=== PATIENT | female | born 1985 | race African-American/Black ===

== ENCOUNTER 2016-12-27 10:00 | Inpatient (IN) | payer OTHER ==
[~2016-12-27] VITALS: Ht 172.7 cm; Wt 92.1 kg
[~2016-12-27 10:00] MED LIST: Dexamethasone Inj PF*Surgery use* 10 MG/ML VIAL IV ONE; ceFAZolin 1gm/50ml Premix 50 ML IV ONE; ceFAZolin sod 1 GM in NS 55 ML IVP ONE; ceFAZolin sod 1 GM in NS 55 ML IVPB ONE
[2017-01-02] VITALS (12 sets, daily range): BP systolic 91–133; BP diastolic 64–86
[2017-01-02] MEDS ORDERED: Dexamethasone 4mg/ml vial IVP ONE (06:00)
[2017-01-02] MEDS ORDERED: ceFAZolin 1gm in D5W 55ml IVP ONE (06:00)
[2017-01-02] MEDS ORDERED: Thrombin 5000 units TOPIC ONE ×2 (07:05→11:30)
[2017-01-02] MEDS ORDERED: Lidocaine 1% Plain 30 ml INJ ONE (07:06)
[2017-01-02] MEDS ORDERED: Vancomycin 1gm inj IVPB ONE (07:06)
[2017-01-02] MEDS ORDERED: Surgicel 4in x 8in TOPIC ONE (07:06)
[2017-01-02] MEDS ORDERED: Bupivacaine 0.5% Inj 30 ml vial INJ ONE (07:07)
[2017-01-02] MEDS ORDERED: Bacitracin 50000 Units Vial ONE (07:07)
[2017-01-02] MEDS ORDERED: SOMA350 MG PO (08:01)
--- NOTE | 2017-01-02 08:19 | Pre-Procedure Note/Attestation ---
Pre-Procedure Note/Attestation Complete Prior to Procedure Planned Procedure: not applicable Procedure Narrative: ACDF C4-5, C5-6, Anterior internal plate fixation Indications for Procedure Pre-Operative Diagnosis: Trauma, Discogenic Neck Pain Attestation I attest that I discussed the nature of the procedure; its benefits; risks and complications; and alternatives (and the risks and benefits of such alternatives ), prior to the procedure, with the patient (or the patient's legal veterans employment representative). I attest that, if there was a reasonable possibility of needing a blood transfusion, the patient (or the patient's legal veterans employment representative) was given the [facility] standardized written summary, pursuant to the [place] Blood Safety Act ([place] Health and Safety Code # 1645, as amended). I attest that I re-evaluated the patient just prior to the surgery and that there has been no change in the patient's H&P, except as documented below: NAEL CROWLEY Jan 02, 2017 08:19
[2017-01-02] MEDS ORDERED: Sterile Water Irrig 1000ml IRRIG ONE (09:00)
[2017-01-02] MEDS ORDERED: Dexamethasone 4mg/ml vial ONE (09:00)
[2017-01-02] MEDS ORDERED: fentaNYL 250mcg/5ml ONE (09:00)
[2017-01-02] MEDS ORDERED: Labetalol 5mg/ml 20ml vial IV ONE (09:00)
[2017-01-02] MEDS ORDERED: Midazolam 2mg/2ml Inj ONE (09:00)
[2017-01-02] MEDS ORDERED: LR 1000ml ONE (09:00)
[2017-01-02] MEDS ORDERED: Propofol 10mg/ml 100ml btl IV ONE (09:00)
[2017-01-02] MEDS ORDERED: Glycopyrrolate 0.2mg/ml 1ml Vial ONE (09:00)
[2017-01-02] MEDS ORDERED: Neostigmine 1mg/ml 10ml Inj ONE (09:00)
[2017-01-02] MEDS ORDERED: Lidocaine 1% MPF 10mg/ml 5ml ONE (09:00)
[2017-01-02] MEDS ORDERED: Zemuron 50mg/5ml Inj IV ONE (09:00)
[2017-01-02] MEDS ORDERED: NS Irrig 1000ml ONE (09:00)
--- NOTE | 2017-01-02 09:52 | Anethesia Preoperative Eval ---
Anesthesia Pre-op PMH/ROS General Date of Evaluation: Jan 02, 2017 Time of Evaluation: 08:53 Anesthesiologist: Kendrick ASA Score: ASA 2 Mallampati Score Class I : Soft palate, uvula, fauces, pillars visible Class II: Soft palate, uvula, fauces visible Class III: Soft palate, base of uvula visible Class IV: Only hard plate visible Mallampati Classification: Class II Surgeon: Darya Diagnosis: Neck Pain Surgical Procedure: ACDF C4-5, C5-6 Anesthesia History: none Family History: no anesthesia problems Allergies: Uncoded Allergies: BAND AID (Allergy, Mild, REDNESS, 01/02/17) Medications: see eMAR Past Medical History Other: obesity - BMI 31 Anesthesia Pre-op Phys. Exam Physician Exam Last Vital Signs Date Time Temp Pulse Resp B/P Pulse Ox O2 Delivery O2 Flow Rate FiO2 01/02/17 07:55 98.5 67 18 126/70 100 Room Air Constitutional: NAD Neurologic: CN 2-12 intact Cardiovascular: RRR Respiratory: CTA Gastrointestinal: S/NT/ND Airway Exam Mallampati Score: Class II MO: full ROM: limited Teeth: intact, loose - Back Two molars Anesthesia Pre-op A/P Labs Urine Test Test 01/02/17 07:25 Urine HCG, Qualitative Negative Risk Assessment & Plan Assessment: ASA 2 Plan: GA, BIS, Glidescope Status Change Before Surgery: No Pre-Antibiotics Dru Grams Ancef IV Given Within 1 Hr of Incision: Yes Time Given: 10:37 Rodney Marks MD Jan 02, 2017 09:52
--- NOTE | 2017-01-02 09:53 | Immediate Post-Op Evaluation ---
Immediate Post-Op Evalulation Immediate Post-Op Evalulation Procedure: ACDF C4-5, C5-6 Date of Evaluation: Jan 02, 2017 Time of Evaluation: 13:19 IV Fluids: 1000 LR Blood Products: 0 Estimated Blood Loss: 25 Urinary Output: 0 Blood Pressure Systolic: 91 Blood Pressure Diastolic: 66 Pulse Rate: 57 Respiratory Rate: 16 O2 Sat by Pulse Oximetry: 100 Temperature (Fahrenheit): 97.6 Pain Score (1-10): 3 Nausea: No Vomiting: No Complications 0 Patient Status: awake, patent, extubated, none Hydration Status: adequate Dru Grams Ancef IV Given Within 1 Hr of Incision: Yes Time Given: 10:37 Rodney Marks MD Jan 02, 2017 09:53
--- NOTE | 2017-01-02 12:47 | Brief Operative Note ---
Immediate Post Operative Note Operative Note Pre-op Diagnosis: Trauma, Discogenic Neck Pain Procedure: ADR C4-5 C5-6 Microscope SSEP xray Post-op Diagnosis: same as pre-op Findings: consistent w/pre-op dx studies Surgeon: Darya ALBRECHT Chair Lift Operator: Emerald LOZANO Anesthesiologist: Kendrick ALBRECHT Anesthesia: general Specimen: none Complications: none Condition: stable Estimated Blood Loss: minimal Drains: none Implant(s) used?: Yes NAEL CROWLEY Jan 02, 2017 12:47
[2017-01-02] MEDS ORDERED: HYDROmorphone 1mg/ml Carpuject SUBQ PRN (13:00)
[2017-01-02] MEDS ORDERED: Hydromorphone 0.5mg/0.5ml inj ONE (13:17)
[2017-01-02] MEDS ORDERED: LR 1000ml 1,000 ML IVLG SCH (13:17)
[2017-01-02] MEDS ORDERED: Atropine Inj 1mg/10ml Syr IV PRN (13:30)
[2017-01-02] MEDS ORDERED: Meperidine 25mg/0.5ml Inj (FOR RIGORS ONLY) IV PRN (13:30)
[2017-01-02] MEDS ORDERED: fentaNYL 100 mcg/2 mL IV PRN (13:30)
[2017-01-02] MEDS ORDERED: LORazepam Inj 2mg/ml 1ml IV PRN (13:30)
[2017-01-02] MEDS ORDERED: DiphenhydrAMINE 50mg/ml Inj IVP PRN (13:30)
[2017-01-02] MEDS ORDERED: Oxycodone/Acetaminophen 5-325 ORAL PRN (13:30)
[2017-01-02] MEDS ORDERED: Hydromorphone 0.5mg/0.5ml inj IVP PRN (13:30)
[2017-01-02] MEDS ORDERED: Norco 7.5mg/325mg tab ORAL PRN (13:30)
[2017-01-02] MEDS ORDERED: Metoclopramide 10mg/2ml Inj IVP PRN (13:30)
[2017-01-02] MEDS ORDERED: Norco 5mg/325mg tab ORAL PRN (13:30)
[2017-01-02] MEDS ORDERED: Ketorolac 30mg Inj IV PRN (13:30)
[2017-01-02] MEDS ORDERED: Ketorolac 60mg Inj IV PRN (13:30)
[2017-01-02] MEDS ORDERED: Midazolam 2mg/2ml Inj IVP PRN (13:30)
[2017-01-02] MEDS ORDERED: Acetaminophen (Non formulary) 100 ML IV ONE (13:30)
--- NOTE | 2017-01-02 14:07 | Diagnostic Imaging Report ---
Indication: PAIN Technique: Digital intraoperative imaging Comparison: None Findings: Intraoperative images demonstrate surgical tool projected anterior aspect of the C5-6 disc. Subsequent images demonstrate placement of disc prostheses at C4-5 and C5-6. These appear well aligned. Impression: Intraoperative imaging, as described
[2017-01-02] MEDS: D5 1/2NS 1,000 ML IV SCH (15:51)
--- NOTE | 2017-01-02 17:01 | Operative Note - Dictated ---
DATE OF OPERATION: 01/02/2017 SURGEON: Rivera Lackey Ph.D. M.D. RECYCLING SPECIALIST: MARTA Hsu. ANESTHESIOLOGIST: Rodney Marks M.D. ANESTHESIA: General with intubation. ADMITTING/PREOPERATIVE DIAGNOSIS: Posttraumatic discogenic neck pain. POSTOPERATIVE DIAGNOSIS: Posttraumatic discogenic neck pain. OPERATIVE PROCEDURE: 1. Artificial disc replacement C4-C5, C5-C6. 2. High-power microscopic dissection, SSEP monitoring, intraoperative fluoroscopy interpreted by surgeon. ESTIMATED BLOOD LOSS: Minimal. POSTOPERATIVE CONDITION: Good/stable. PROCEDURE: The patient was brought back to the operating room and in supine position general anesthesia with intubation was induced. IV antibiotics and IV Decadron were administered prior to incision time. Utilizing markers without penetration of the skin and cross-table fluoroscopic imaging, level for incision placement determined and marked appropriately. Anterior cervical spine sterilely prepped and draped free in the usual sterile fashion. Transverse left anterior cervical incision sharply through dermis and epidermis. Electrocautery dissection through the subcutaneous tissue to the level of the platysmas muscle was identified, isolated, and transected in line with the incision. Dissection was carried medial to the left sternocleidomastoid and the carotid sheath through the deep cervical and pretracheal fascia to the midline between the right and left longus colli muscles. Midline identified under direct observation. A spinal needle placed into the disk space so as to avoid penetration greater than 3 mm. Cross-table image obtained under sterile conditions demonstrating a correct level for the dissection. Level marked. Needle removed. Subperiosteal dissection of the longus colli muscles not exceeding 3 mm in the mediolateral extent over the involved intervals. Retractors placed. Confirmation levels with needle placement into the disk space at C4-C5. Needle removed. Under high-power magnification, annulotomy followed with microdiscectomy to, but not through the posterior longitudinal ligament. Midas Yevgeniy bur dissection of the anterior inferior lip C4. Posterior longitudinal ligament resected. No dural tears or leaks occurred at any time during the procedure. SSEP monitoring stable. Trials performed with fluoroscopic guidance. The 5 mm high disk utilized. Appropriate insertion technique utilized with drilling, cutting-all instrumentation was stopped so as to avoid possible penetration into the spinal cord. Placement of the disk appropriately. Cross-table imaging demonstrating excellent alignment and position at the correct level. Wound irrigated with antibiotic-containing saline. Attention was turned to the C5-C6 interval. Small anterior osteophyte noted at the anterior superior aspect of the C6 vertebral body. Discectomy to, but not through the posterior longitudinal ligament. The anterior inferior lip on the C5 vertebral body resected under high-power magnification with Midas Yevgeniy bur dissection. was undertaken of all cartilage and then placed both at C4-C5 and C5-C6 interval. Posterior longitudinal ligament resected. No dural tears or leaks occurred at any time during the procedure. No noted cerebrospinal fluid leakage at any time during the procedure. Appropriate technique utilized for insertion of the artificial disc 6 mm in height. Appropriate drilling, cutting, and insertion of the disk. This was after the appropriate trial was utilized to determine depth and height/width. Fit was excellent. The patient is stable. Cross-table imaging demonstrating correct level, alignment, and seating. Wound irrigated with antibiotic-containing saline. A 0.5 grams vancomycin powder applied. Reapproximation of the platysmas muscle, dermis, and epidermis with a subcuticular closure. Surgical strips followed with sterile bandage maintained, placed with tape. The patient was awakened, extubated in the operating room, and transported to postop recovery in good stable condition. Rivera Lackey M.D. DR: JEN JOB#: [id number] CC: JESSY
[2017-01-02] MEDS ORDERED: HYDROmorphone 1mg/ml Carpuject IVP PRN (18:45)
[2017-01-02] MEDS ORDERED: Dronabinol 2.5mg Cap ORAL ONE (18:45)
[2017-01-02] MEDS ORDERED: Tylenol #3 tab (300mg/30mg) ORAL PRN (18:45)
[2017-01-02] MEDS ORDERED: oxyCODONE 5mg IR tab ORAL PRN ×2 (18:45)
[2017-01-02] MEDS: ceFAZolin sod 1 GM in D5W 55 ML IV SCH (18:58)
[2017-01-02] MEDS: Chloraseptic Spray 20mL Bottle ORAL PRN (18:58)
[2017-01-02] MEDS: Dexamethasone 4mg/ml vial IVP SCH (18:58)
--- NOTE | 2017-01-03 00:01 | Consultation ---
DATE OF CONSULTATION: 01/02/2017 REFERRING PHYSICIAN: Rivera Lackey M.D. REASON FOR CONSULTATION: Acute pain. HISTORY OF PRESENT ILLNESS: Dear Dr. Rivera Lackey, Thank you kindly for consulting me to evaluate and render an opinion as to how to proceed in the management of the patient's acute postoperative cervical spine pain after multiple level cervical spine instrumentation surgery today. The patient is a pleasant 31-year-old woman who injured her neck after a slip and fall accident. She also injured her lumbar spine. Today, she underwent a cervical spine multilevel surgery with complaints of significant discomfort postoperatively. On your request, I saw the patient for acute pain consultation. I saw the patient at bedside and performed a detailed history and physical examination. I discussed the case with preoperatively Dr. Rodas along with the nurse RN, [place]. I reviewed multiple medical records from today's date of surgery at [facility] including multiple records from the pharmacy, staff, the nursing department, the intraoperative anesthesiologist, the surgery suite, the pharmacy, and yourself, Dr. Lackey. PAST MEDICAL HISTORY: 1. Acute postoperative cervical spine pain, status post multiple level cervical spine instrumentation surgery by Dr. Rivera Lackey in January 2017. 2. Slip and fall accident. 3. Moderate obesity. PAST SURGICAL HISTORY: Left knee surgery in 2016 and appendectomy as a child. ALLERGIES: No known drug allergies. Allergic to adhesive Band-Aid. SOCIAL HISTORY: The patient lives alone. She admits to recreational marijuana usage. The patient has no children currently. FAMILY HISTORY: Noncontributory. REVIEW OF SYSTEMS: Per Dr. Rodas. PHYSICAL EXAMINATION: VITAL SIGNS: Age 31, height 5 feet 8 inches, weight 202 pounds, and body mass index 31. Vital signs shows pain level is 6/10 on the visual analog pain scale, afebrile, pulse 80, respirations 21, blood pressure 115/71, and oxygen saturation 97% on supplemental oxygen. HEENT: Head, normocephalic and atraumatic. Extraocular muscles intact. Pupils are equal, round, and reactive to light and accommodate. No Castrejon's palsy. No Amie syndrome. NECK: Dressing appears clean and dry. Pain with range of motion. Ice packs in place. CHEST: Clear to auscultation. BREASTS: Deferred to Dr. Rdoas. ABDOMEN: Moderately obese. Positive bowel sounds. GENITOURINARY: Deferred to Dr. Rodas. NEUROLOGIC: Pain with range of motion of the neck. A detailed lumbar spine and neurologic exam deferred to Dr. Lackey. LABORATORY AND DIAGNOSTIC DATA: Preoperative diagnostic testing shows a 12-lead EKG with a heart rate of 70, normal sinus rhythm. Preoperative chest x-ray shows no acute cardiopulmonary disease, 12/27/2016. Cervical discogram, 12/21/2016 shows C4-5 and C5-6 severe concordant pain. Lumbar spine shows no gross spondylolisthesis evident, 12/07/2016. Laboratory studies, 12/27/2016 shows glucose 89, BUN 10, creatinine 0.9, sodium 138, potassium 4.4, chloride 105, bicarbonate 22, calcium 9.3, total protein 6.6, albumin 4.1, total bilirubin 0.3, alkaline phosphatase 54, AST 13, and ALT 12. Hemoglobin A1c 5.5. PTT 29 and INR 0.9. White count 4, platelets 323,000, and hematocrit 37. Urinalysis negative. HIV, hepatitis B and C negative. test negative. IMPRESSION: 1. Acute postoperative cervical spine pain, status post multiple level cervical spine instrumentation surgery by Dr. Rivera Lackey in January 2017. 2. Slip and fall accident. 3. Moderate obesity. TREATMENT AND RECOMMENDATIONS: To help with this patient's pain control, I have devised the following analgesic plan. The patient was complaining of significant muscle spasm. I ordered Soma 350 mg orally every 8 hours p.r.n. as an antispasm agent. I set up a tiered regimen of analgesics to help with pain control. I started her on Tylenol No. 3 with Codeine 1 tablet orally every 4 hours p.r.n. for mild pain. I have ordered oxycodone 5 mg orally every 3 hours p.r.n. for moderate pain, and I have ordered a breakthrough rescue dose of Dilaudid 0.5 mg intravenously every 3 hours p.r.n. for severe pain. I have added a nightly dose of Marinol 2.5 mg now to help with rest and sleep tonight. Dr. Lackey has placed the patient on the round the clock IV Decadron to help postoperatively with swelling. I have streamlined the patient's medication list to reduce the risk of medication administration errors. I have added a dose of Protonix 40 mg nightly for GI ulcer prophylaxis along with a p.r.n. dose of Mylanta 30 mL q.6 h. p.r.n. for any GERD symptoms. I have added Zofran as a rescue antiemetic. I have ordered Benadryl 25 mg orally every 6 hours as needed for itching symptoms. In case of refractory nausea, I have ordered an intramuscular dose of Phenergan 12.5 mg q.8 h. I have ordered incentive spirometry and encouraged good pulmonary toilet. I will defer DVT prophylaxis to the surgeon. The patient has already ambulated to the restroom. Aggressive ambulation will be the best treatment against deep venous thrombosis. Kurt Jones M.D. DR: Alireza JOB#: [id number] CC:
[2017-01-03] MEDS: D5 1/2NS 1,000 ML IV SCH (01:01)
[2017-01-03] MEDS: ceFAZolin sod 1 GM in D5W 55 ML IV SCH (02:01)
[2017-01-03] MEDS: Chloraseptic Spray 20mL Bottle ORAL PRN ×2 (05:30)
[2017-01-03] MEDS: Dexamethasone 4mg/ml vial IVP SCH ×2 (05:50)
[2017-01-03 08:00] VITALS: BP 133/63
--- NOTE | 2017-01-03 08:16 | Progress Note ---
DATE: 01/03/2017 ACUTE PAIN MANAGEMENT PHYSICIAN PROGRESS NOTE MEDICATIONS: Medication administration record reviewed. Medications include Tylenol No.3, Mylanta, Soma, Decadron, Benadryl, Dilaudid, Zofran, oxycodone, Protonix, Chloraseptic, and Phenergan. OBJECTIVE: VITAL SIGNS: Vital signs on this morning afebrile. Pulse 76, respirations 18, blood pressure 133/78, and oxygen saturation 100% on room air. LABORATORY STUDIES: No interval laboratory studies. I saw the patient at the bedside this morning after discussion with the nurse RN, [place]. I spent over 60 minutes in consultation today. I discussed the case with surgeon Dr. Lackey. The patient received her Marinol dose yesterday evening, and slept well after another dose of Soma, which is working well with the muscle relaxant. The patient does have good supply of Soma already at home as well as an outpatient prescription from Dr. Lackey for home usage. The patient has been ambulating very well. She is voiding urine and tolerating advancing diet. She is swallowing, breathing, and phonating within normal limits. After neck surgery, the neck dressing appears clean, and dry, and postoperative neck swelling appears within normal limits. The patient has normal vital signs and appears grossly neurologically intact. Physical therapy will evaluate the patient at this morning and I would expect the patient will be able to discharge home later. I did student loan counselor the patient not to drive while taking postoperative pain medications for any narcotics. I did encourage aggressive incentive spirometer usage for good pulmonary toilet. The patient will contact Dr. Lackey office to schedule outpatient surgical follow up appointment. The patient believes that she does have upcoming lumbar spine surgery in the near future. Overall the patient is doing very well after multilevel neck surgery. She received multiple bolus doses of Decadron per Dr. Lackey, Surgery for postoperative swelling. The patient does have a mild headache currently, but no evidence for CSF drainage. I reviewed discharge trial. Planned per the surgeon, Dr. Lackey. Kurt Jones M.D. DR: ABISAI JOB#: [id number] CC:
[2017-01-03 11:14] VITALS: BP 116/72
--- NOTE | 2017-01-03 11:14 | 48 Hour Post Anesthesia Eval ---
Post Anesthesia Evaluation Procedure: ACDF C4-5, C5-6 Date of Evaluation: Jan 03, 2017 Time of Evaluation: 11:12 Blood Pressure Systolic: 116 0: 72 Pulse Rate: 68 Respiratory Rate: 20 Temperature (Fahrenheit): 97.6 O2 Sat by Pulse Oximetry: 98 Airway: patent Nausea: No Vomiting: No Pain Intensity: 3 Hydration Status: adequate Cardiopulmonary Status: stable Mental Status/LOC: patient returned to baseline Follow-up Care/Observations: n/a Post-Anesthesia Complications: none Follow-up care needed: N/A LISA BAIRES M.D. Jan 03, 2017 11:14
--- NOTE | 2017-01-04 16:20 | Discharge Summary ---
Discharge Summary Hospital Course Date of Admission Jan 02, 2017 at 07:17 Date of Discharge Jan 03, 2017 at 12:00 Admitting Diagnosis HPI Jennifer Burton is a 31 year old female who was admitted on Jan 02, 2017 at 07:17 for Cervical Discogenic Pain Hospital Course [id number] Discharge Discharge Disposition Patient was discharged to Home (01) Discharge Diagnoses: Fernanda Lund NP Jan 04, 2017 16:20
--- NOTE | 2017-01-04 23:45 | Discharge Summary 2 SIG ---
DATE OF ADMISSION: 01/02/2017 DATE OF DISCHARGE: 01/03/2017 AUTOMOTIVE TIRE WORKER: Kurt Jones M.D. BRIEF HOSPITAL COURSE: The patient is a 31-year-old female, who was diagnosed with posttraumatic diskogenic neck pain. She was admitted on 01/02/2017 and underwent artificial disk replacement on C4-C5 and C5-C6 on 01/02/2017. Postoperatively, she was seen by pain management and was given Tylenol No 3 with codeine, oxycodone, and Dilaudid as needed pain. She was also placed on intravenous Decadron to help postoperatively with swelling. The patient was given Protonix for gastrointestinal ulcer prophylaxis as well as Mylanta and Zofran as needed. She was encouraged use of spirometry. The patient had been ambulating well. She was voiding and tolerating diet. Neck dressing appeared clean, dry and was within normal limits. The patient was then discharged home to follow up as outpatient. FINAL DIAGNOSES: Posttraumatic diskogenic neck pain status post artificial disk replacement in C4-C5 and C5-C6. Rivera Lackey M.D. I have been assigned to dictate discharge summary on this account and I was not involved in the patient's management. Fernanda Lund N.P. DR: Vishnu JOB#: [id number] CC: JESSY
== END 2017-01-03 12:00 | disposition home or self-care (01) | DRG 518 ==
LOC: SDSOVERFLO 01-02 07:17 → 3E 01-02 14:28
PROC: 0RR30JZ Replacement of Cervical Vertebral Disc with Synthetic Substitute, Open Approach (ICD-10-PCS; principal; 2017-01-02 08:30)
PROC: 0RB30ZZ Excision of Cervical Vertebral Disc, Open Approach (ICD-10-PCS; principal; 2017-01-02 08:30)
DX: M50.821 Other cervical disc disorders at C4-C5 level (principal); E66.9 Obesity, unspecified; G89.18 Other acute postprocedural pain
CPT/HCPCS: 36415; 72040; 76001; 81025; 86850; 86900; 86901; 87081; 94003; 94150; J2250; J2405; J2710

== ENCOUNTER 2017-10-30 06:38 | Inpatient (IN) | payer OTHER ==
[2017-10-30] VITALS (15 sets, daily range): BP systolic 110–141; BP diastolic 61–97
[~2017-10-30] VITALS: Ht 175.3 cm; Wt 96.6 kg
[~2017-10-30 06:38] MED LIST changes: +Bacitracin 50000 Units Vial ONE; +Dexamethasone 20mg/5ml IVP SCH; -Dexamethasone Inj PF*Surgery use* 10 MG/ML VIAL IV ONE; +Glycopyrrolate 0.2mg/ml 1ml Vial ONE; +HYDROCODON-ACE1 EA13 ORAL; +Heparin 5000 units/ml inj ONE; +LR 1000ml ONE; +Labetalol 5mg/ml 20ml vial IV ONE; +Lidocaine 1% MPF 10mg/ml 5ml ONE; +Lidocaine 1% Plain 30 ml INJ ONE; +Naloxone 0.4mg/ml Inj ONE; +Neostigmine 1mg/ml 10ml Inj ONE; +Propofol 1,000mg/ 100ml btl IV ONE; +Ropivacaine 5mg/ml Vial 30ml INJ ONE; +SOMA350 MG PO; +Sodium Chloride 10ml vial INJ ONE; +Sterile Water For Inj 1000ml IV ONE; +TRIAMCINOLONE A80 GM TP; +Thrombin 5000 units TOPIC ONE; +Zemuron 50mg/5ml Inj IV ONE; -ceFAZolin 1gm/50ml Premix 50 ML IV ONE; +ceFAZolin sod 1 GM in D5W 55 ML IVPB ONE; -ceFAZolin sod 1 GM in NS 55 ML IVP ONE; -ceFAZolin sod 1 GM in NS 55 ML IVPB ONE; +fentaNYL 100 mcg/2 mL IV ONE
[2017-10-30] MEDS ORDERED: Dexamethasone 20mg/5ml ONE (06:44)
[2017-10-30] MEDS ORDERED: Bacitracin 50000 Units Vial IRRIG ONE ×2 (07:00→09:30)
[2017-10-30] MEDS ORDERED: Thrombin 5000 units TOPIC ONE (07:00)
[2017-10-30] MEDS ORDERED: Ropivacaine 5mg/ml Vial 30ml INJ ONE (07:00)
--- NOTE | 2017-10-30 07:24 | Pre-Procedure Note/Attestation ---
Pre-Procedure Note/Attestation Complete Prior to Procedure Planned Procedure: not applicable Procedure Narrative: L5-S1 Anterior discectomy intervertebral device BMP fusion internal fixation Posterior: L5-S1 decompression Pedical Screw Instrumentation Fusion Indications for Procedure Pre-Operative Diagnosis: Posttraumatic: L5-S1 Instability HNP radiculopathy neurologic deficit - progressive Attestation I attest that I discussed the nature of the procedure; its benefits; risks and complications; and alternatives (and the risks and benefits of such alternatives ), prior to the procedure, with the patient (or the patient's legal district sales representative). I attest that, if there was a reasonable possibility of needing a blood transfusion, the patient (or the patient's legal district sales representative) was given the [place] [facility] standardized written summary, pursuant to the [place] Blood Safety Act ([place] Health and Safety Code # 1645, as amended). I attest that I re-evaluated the patient just prior to the surgery and that there has been no change in the patient's H&P, except as documented below: NAEL CROWLEY October 30, 2017 07:24
[2017-10-30] MEDS ORDERED: Lidocaine 1% Plain 30 ml INJ ONE (10:00)
--- NOTE | 2017-10-30 12:38 | Brief Operative Note ---
Immediate Post Operative Note Operative Note Pre-op Diagnosis: Posttraumatic: L5-S1 Instability HNP radiculopathy neurologic deficit - progressive Procedure: L5-S1: Discectomy, Correction deformity, intervertebral body device application BMP Internal fixation Posterior L5-S1 Left hemilaminotomy decompression pedicle screw instrumentation L5, S1 Body Habitus Xray fusion high power magnification dissection local anesthetic Post-op Diagnosis: same as pre-op Findings: consistent w/pre-op dx studies Surgeon: Darya ALBRECHT Radio Disc Jockey: Emerald LOZANO Additional Surgeons: Reyes ALBRECHT Anesthesiologist: Kendrick ALBRECHT Anesthesia: general Specimen: none Complications: none Condition: stable Fluids: anesthesia Estimated Blood Loss: minimal Drains: none Implant(s) used?: Yes NAEL CROWLEY October 30, 2017 12:38
[2017-10-30] MEDS ORDERED: Midazolam 2mg/2ml Inj ONE (12:44)
[2017-10-30] MEDS ORDERED: Naloxone 0.4mg/ml Inj IVP PRN (12:45)
[2017-10-30] MEDS ORDERED: Midazolam 2mg/2ml Inj IVP ONE (13:00)
[2017-10-30] MEDS ORDERED: LR 1000ml 1,000 ML IVLG SCH (13:13)
[2017-10-30] MEDS ORDERED: Ketorolac 30mg Inj IV PRN ×2 (13:15)
[2017-10-30] MEDS ORDERED: fentaNYL 100 mcg/2 mL IV PRN (13:15)
[2017-10-30] MEDS ORDERED: HYDROcodone/Acetamin 7.5/325 tab ORAL PRN (13:15)
[2017-10-30] MEDS ORDERED: oxyCODONE HCL/Acetaminophen 5/325mg ORAL PRN (13:15)
[2017-10-30] MEDS ORDERED: Hydromorphone 0.5mg/0.5ml inj IVP PRN (13:15)
[2017-10-30] MEDS ORDERED: Midazolam 2mg/2ml Inj IVP PRN (13:15)
[2017-10-30] MEDS ORDERED: Metoclopramide 10mg/2ml Inj IVP PRN (13:15)
[2017-10-30] MEDS ORDERED: DiphenhydrAMINE 50mg/ml Inj IVP PRN (13:15)
[2017-10-30] MEDS ORDERED: LORazepam Inj 2mg/ml 1ml IV PRN (13:15)
[2017-10-30] MEDS ORDERED: Labetalol 5mg/ml 20ml vial IV PRN (13:15)
[2017-10-30] MEDS ORDERED: Acetaminophen (Non formulary) 100 ML IV ONE (13:15)
[2017-10-30] MEDS ORDERED: Norco 5mg/325mg tab ORAL PRN (13:15)
[2017-10-30] MEDS ORDERED: Atropine Inj 1mg/10ml Syr IV PRN (13:15)
--- NOTE | 2017-10-30 14:17 | Diagnostic Imaging Report ---
Indication: Back pain Comparison: None Findings: 4 fluoroscopic views of the lumbar spine were obtained. Images showing stages of discectomy and placement of prosthetic disc at L5-S1 with posterior fusion rods and pedicle screws at L5-S1. IMPRESSION: Intraoperative imaging
[2017-10-30] MEDS: D5 1/2NS 1,000 ML IV SCH ×2 (16:21→22:16)
[2017-10-30] MEDS ORDERED: Tylenol #3 tab (300mg/30mg) ORAL PRN (16:30)
[2017-10-30] MEDS ORDERED: oxyCODONE 5mg IR tab ORAL PRN (16:30)
[2017-10-30] MEDS ORDERED: Chloraseptic Spray 20mL Bottle ORAL ONE (17:30)
[2017-10-30] MEDS: ceFAZolin sod 1 GM in D5W 110 ML IV SCH (17:32)
[2017-10-30] MEDS ORDERED: ceFAZolin sod 1 GM in D5W 55 ML IV SCH (18:00)
[2017-10-30] MEDS: Chloraseptic Spray 20mL Bottle ORAL PRN (18:47)
[2017-10-30] MEDS: Hydromorphone 0.5mg/0.5ml inj SUBQ PRN (20:30)
[2017-10-30] MEDS: Dronabinol 2.5mg Cap ORAL SCH (22:16)
--- NOTE | 2017-10-30 23:00 | Operative Note - Dictated ---
DATE OF OPERATION: 10/30/2017 PRIMARY SURGEON: Rivera Lackey, Ph.D., M.D. CO-SURGEON: Anterior fusion, vascular surgery exposure, Dr. Chambers with Dr. Lackey, as assist posterior. VP STRATEGIC PARTNERSHIPS: MARTA Hsu. ANESTHESIA: General with intubation, Dr. Marks. ESTIMATED BLOOD LOSS: 50 mL. COMPLICATIONS: None. POSTOPERATIVE CONDITION: Good/stable. PREOPERATIVE DIAGNOSIS: Post trauma lumbar spine instability, back pain with lower extremity radiculopathy, left footdrop/neurologic deficit. POSTOPERATIVE DIAGNOSIS: Post trauma lumbar spine instability, back pain with lower extremity radiculopathy, left footdrop/neurologic deficit. OPERATIVE PROCEDURE: Anterior, L5-S1 diskectomy, correction deformity, insertion of biomechanical lordotic device, internal fixation placement, bone morphogenic protein for fusion. Closure local anesthetic applied by surgeon, high-powered magnification dissection. Please see separate report for exposure and closure, Dr. Chambers. Posterior, the patient's body habitus greater than 95th percentile for height. Hemilaminotomy left L5-S1 with nerve root decompression dorsal foraminotomy, pedicle screw instrumentation, bilateral L5, bilateral S1, local anesthetic applied by surgeon. Intraoperative x-rays interpreted anterior/posterior by surgeon. PROCEDURE IN DETAIL: The patient was brought to the operating room and in the supine position general anesthesia with intubation was induced. IV antibiotics, IV Decadron were administered 30 minutes prior to incision time. The patient was appropriately positioned in the supine position. Anterior abdomen was sterilely prepped and draped free in usual sterile fashion. Please see separate report of Dr. Chambers, exposure/closure. L5-S1 was identified in the AP and lateral planes with fluoroscopy under sterile conditions with a spinal needle in place. Midline with a spinal needle bent at 90 degree angles to avoid penetration greater than 3 mm into the disc space. Level correct and marked. Needle removed. Annulotomy performed followed with diskectomy to the posterior longitudinal ligament. Endplate irregularities corrected to horizontal endplates with the Midas Yevgeniy bur dissection under high-power magnification. Subchondral bone not breached. Trial prosthesis utilized with fluoroscopic guidance with determination of the correct size with regards to height, angle of lordosis, depth and width. Prosthesis after being mounted on the insertion device, was packed with bone morphogenic protein, intubated sponge for fusion. Insertion device utilized with placement of prosthesis correct positioning. Internal fixation wings applied to cephalad to caudad. Fixation excellent. Insertion device removed. Prosthesis incorporated in fibrin glue. Irrigation. Please see closure, Dr. Chambers. After bandage was applied under sterile conditions to the abdomen, the patient was carefully turned to a new operating table in the prone position. All new instruments were utilized. Lumbodorsal spine was sterilely prepped and under sterile conditions, spinal needle was placed in the subcutaneous tissue only and fluoroscopic cross-table imaging obtained demonstrating the correct level for incision placement. Levels marked. Needle removed. Back prepped and draped free in usual sterile fashion. A longitudinal midline incision over the appropriate intervals were sharply placed in the dermis and epidermis. Extensive dissection was carried electrocautery through the subcutaneous tissue to the level of lumbodorsal fascia. Lumbodorsal fascia was incised right and left of midline. A subperiosteal dissection over the involved intervals. Intervals confirmed with fluoroscopic imaging under sterile conditions, cross-table with markers in place. Under high-power magnification, a left hemilaminotomy was performed. Inferior L5 superior S1 with decompression of the exiting nerve root. Medial facetectomy performed. Dorsal foraminotomy performed. No dural tears or leaks noted anytime during the procedure. Wound was irrigated with antibiotic-containing saline. Bleeding bone was cauterized with application of sterile wax. With direct observation combined with fluoroscopic guidance, pedicle screw instrumentation was undertaken bilateral S1, bilateral L5 pedicles with 6.5 mm diameter screws. Fit excellent. Positioning excellent by fluoroscopic and direct observation. Interconnecting rods of the appropriate dimensions torqued into position with the appropriate torque by technology adoption manager's definition. Fixation excellent. Wound was irrigated with antibiotic-containing saline. FloSeal applied overlying the hemilaminotomy site. Sequential reapproximation with Vicryl suture material of the lumbodorsal fascia, subcutaneous tissue in multiple layers, dermis and epidermis with a running subcuticular suture. Local anesthetic 1% Marcaine was applied bilateral lateral aspects of the incision as local anesthetic. Transverse surgical strips applied followed with sterile bandage maintained in place with tape. The patient was carefully turned from the prone to the supine position onto the transport bed where she was awakened, extubated in the operating room, and transported to postoperative recovery in good stable condition. Rivera Lackey M.D. DR: CASH JOB#: [id number] CC:
[2017-10-31] VITALS: BP 95/66
[2017-10-31] MEDS: Chloraseptic Spray 20mL Bottle ORAL PRN ×2 (00:13→21:19)
--- NOTE | 2017-10-31 00:30 | Consultation ---
DATE OF CONSULTATION: 10/30/2017 CONSULTING PHYSICIAN: Kurt Jones M.D. REFERRING PHYSICIAN: Rivera Lackey M.D. REASON FOR CONSULT: Acute pain consult. HISTORY OF PRESENT ILLNESS: Dear Dr. Rivera Lackey, Thank you kindly for consulting me to evaluate and render an opinion as to how to proceed in the management of the patient's acute postoperative lumbar spine pain after her lumbar spine fusion surgery with instrumentation today. The patient is a pleasant 32-year-old woman who injured her lumbar spine after a slip and fall accident on December 10, 2015. After today's lumbar spine fusion surgery, she complains significant pain. You consulted me for acute pain consultation. I saw the patient at bedside. I discussed the case with the nurse, Wayne along with yourself, Dr. Lackey. I spoke with the hospital pharmacist. I reviewed multiple records from the patient's previous hospitalization at [facility] in January 2017 when she had neck surgery. I also reviewed multiple records from the surgery suite, the nursing and pharmacy department. PAST MEDICAL HISTORY: 1. Acute postoperative lumbar spine pain, status post lumbar spine fusion surgery with instrumentation by Dr. Rivera Lackey in October 2017. 2. Slip and fall accident. 3. Moderate obesity. PAST SURGICAL HISTORY: In January 2017, cervical spine surgery by Dr. Rivera Lackey. Left knee surgery in 2016. Appendectomy as a child. ALLERGIES: Latex, Band-Aids. SOCIAL HISTORY: The patient lives alone and does not have any children. She does use marijuana for pain control. FAMILY HISTORY: Noncontributory. MEDICATIONS: At home, Soma, [place], and topical steroid cream. REVIEW OF SYSTEMS: Per Dr. Rodas. PHYSICAL EXAMINATION: VITAL SIGNS: Age 32, height 5 feet 8 inches, weight 97 kilograms, body mass index 32. Pain level 7/10 on the visual analog pain scale. Afebrile, pulse 75, respirations 18, blood pressure 116/72, and oxygen saturation 100% on supplemental oxygen. HEENT: Nasal cannula oxygen in place. No Castrejon palsy. No Amie syndrome. NECK: A detailed cervical spine exam per Dr. Lackey. CHEST: Clear to auscultation. Bibasilar crackles likely secondary to obesity and postoperative atelectasis. No accessory muscle use noted. The patient appears non-toxic. HEART: Regular rate and rhythm. ABDOMEN: Tender by incision area with mild distention. No rebound or guarding appreciated. BREASTS: Deferred. GENITOURINARY: Deferred. Sotrm catheter in place. EXTREMITIES: Moving all extremities x4. 5/5 dorsiflexion, 5/5 plantar flexion in bilateral lower extremities. NEUROLOGIC: Detailed neurologic exam per Dr. Lackey. LABORATORY STUDIES: October 24, 2017 shows negative test. Glucose 85, BUN 9, creatinine 0.9, sodium 139, potassium 4.4, chloride 104, bicarb 28, and calcium 9.4. Total protein 7.5, albumin 4.4, total bilirubin 0.4. Alkaline phosphatase 65, AST 14, ALT 12, PTT 29. White count 6, hematocrit 41, and platelets 321. Urinalysis negative. INR 1.0. Preoperative 12-lead EKG shows heart rate 59, no evidence for acute cardiac ischemia. MRI lumbar spine dated November 08, 2016 shows L4-5 with a 3 mm posterior disk bulge abutting the ventral thecal sac, L5-S1 with a 2 mm posterior disk bulge. X-ray of lumbar spine dated December 07, 2016 shows findings straightening of the lumbar curve in both flexion and extension, moderate L5-S1 disc space narrowing. IMPRESSION: 1. Acute postoperative lumbar spine pain, status post lumbar spine fusion surgery with instrumentation by Dr. Rivera Lackey in October 2017. 2. Slip and fall accident. 3. Moderate obesity. TREATMENT RECOMMENDATIONS: I advised the following, analgesic pain to help with this patient's pain control. She does use marijuana for pain control at home, so I will place her on Marinol 2.5 mg every 8 hours p.r.n. scheduled for baseline analgesia. I then added p.r.n. doses of Tylenol No. 3 with Codeine one tablet orally every 4 hours p.r.n. for mild pain. I have ordered oxycodone 5 mg instant release every three hours p.r.n. for moderate pain. I spoke with the pharmacist to add a subcutaneous dose of 1 mg Dilaudid every three hours as needed for severe breakthrough pain. The patient will remain NPO except for medications and ice chips until she demonstrates moravian of bowel function after ALIF procedure. I will place her on Protonix for GI ulcer prophylaxis and I have also ordered p.r.n. dose of Mylanta 30 mL q.6 hours in case of any GERD symptoms exacerbation. In case of any nausea symptoms, I have ordered Zofran 4 mg intravenously every 4 hours p.r.n. as a first-line agent, with a second-line agent of Phenergan 12.5 mg intramuscularly every 8 hours p.r.n. In case of any headache complaints, I have ordered Fioricet tablets 1 every 8 hours p.r.n. The patient does respond well to Soma which I have made available at a 350 milligram dose orally every 8 hours p.r.n. for spasm. The patient already has a new prescription from Dr. Lackey for Soma and at the time of discharge, I will provide a prescription for another oral analgesic, depended on the patient's tolerability during her hospital stay. I have asked the nursing team to place a Chloraseptic [place] bottle at the bedside to help with the patient's sore throat complaints postoperatively. I have made available Benadryl 25 mg orally every 6 hours p.r.n. for itching symptoms. Sequential compression pneumatic for DVT prophylaxis. I did encourage incentive spirometer usage to help reduce the risk of postoperative pneumonia and atelectasis. Kurt Jones M.D. DR: BENY JOB#: [id number] CC:
[2017-10-31] MEDS: ceFAZolin sod 1 GM in D5W 110 ML IV SCH ×2 (02:28→10:04)
[2017-10-31] MEDS: Hydromorphone 0.5mg/0.5ml inj SUBQ PRN ×2 (02:38→22:50)
[2017-10-31 04:00] VITALS: BP 114/64
[2017-10-31] MEDS: Dronabinol 2.5mg Cap ORAL SCH ×3 (05:29→21:18)
[2017-10-31] MEDS: oxyCODONE 5mg IR tab ORAL PRN ×3 (05:45→17:30)
[2017-10-31] MEDS: D5 1/2NS 1,000 ML IV SCH ×2 (05:46→17:24)
[2017-10-31 08:00] VITALS: BP 100/62
[2017-10-31] MEDS ORDERED: Hydromorphone 0.5mg/0.5ml inj SUBQ ONE (10:45)
--- NOTE | 2017-10-31 11:05 | 48 Hour Post Anesthesia Eval ---
Post Anesthesia Evaluation Procedure: Antyerior and posterior lumbar interbody fusion Date of Evaluation: October 31, 2017 Time of Evaluation: 10:22 Blood Pressure Systolic: 136 0: 75 Pulse Rate: 68 Respiratory Rate: 18 Temperature (Fahrenheit): 98.1 O2 Sat by Pulse Oximetry: 98 Airway: patent Nausea: No Vomiting: No Pain Intensity: 3 Hydration Status: adequate Cardiopulmonary Status: stable Mental Status/LOC: patient returned to baseline Follow-up Care/Observations: n/a Post-Anesthesia Complications: none Follow-up care needed: N/A Haresh Foy MD October 31, 2017 11:05
[2017-10-31 12:00] VITALS: BP 123/78
[2017-10-31 16:00] VITALS: BP 111/68
--- NOTE | 2017-10-31 19:02 | Progress Note ---
DATE: 10/31/2017 ACUTE PAIN MANAGEMENT PHYSICIAN PROGRESS NOTE MEDICATIONS: Medication administration record reviewed. Medications include IV fluids, Protonix, Marinol, Ancef, and Narcan. P.r.n. medications include Fioricet, Tylenol No. 3, Soma, Zofran, Mylanta, Benadryl, Phenergan, Chloraseptic, Dilaudid, and oxycodone. LABORATORY STUDIES: No interval laboratory studies. OBJECTIVE: Afebrile, respirations 20, blood pressure 114/64, and oxygen saturation 99% on supplemental oxygen. I spent over 60 minutes in consultation today. I discussed the case with the physical therapist along with the surgeon, Dr. Lackey. The patient still is not passing flatus after her ALIF procedure. We will continue her NPO except for medications and ice chips until she demonstrates improved bowel function. The patient denies any nausea symptoms. The patient is having some itching symptoms, which should resolve. I will continue her on Protonix to avoid any GERD symptoms. She does have Mylanta available in case of any GERD symptom exacerbation. The patient has been receiving her Marinol q.8 hours with good analgesic efficacy. I will continue the breakthrough doses of subcutaneous Dilaudid and oral oxycodone along with oral Soma to enable her to ambulate out of bed with physical therapy. Physical therapy training will begin later this morning. An incentive spirometer remains at the bedside to encourage good pulmonary toilet. We will continue the supportive care for now and await signs of improved bowel function as she advances with physical therapy for the next 48 hours. Kurt Jones M.D. DR: JULIUS JOB#: [id number] CC:
[2017-10-31 20:00] VITALS: BP 121/68
[2017-11-01] VITALS: BP 118/66
[2017-11-01] MEDS: D5 1/2NS 1,000 ML IV SCH ×4 (00:25→23:15)
[2017-11-01] MEDS: oxyCODONE 5mg IR tab ORAL PRN ×2 (00:32→19:08)
[2017-11-01 04:00] VITALS: BP 116/64
[2017-11-01] MEDS: Dronabinol 2.5mg Cap ORAL SCH ×3 (06:18→22:24)
[2017-11-01 08:00] VITALS: BP 111/69
[2017-11-01] MEDS: Hydromorphone 0.5mg/0.5ml inj SUBQ PRN (10:09)
[2017-11-01 12:00] VITALS: BP 127/78
[2017-11-01 16:00] VITALS: BP 119/69
[2017-11-01 20:00] VITALS: BP 116/70
[2017-11-02] VITALS: BP 116/70
[2017-11-02] MEDS: D5 1/2NS 1,000 ML IV SCH ×2 (01:44→10:20)
[2017-11-02 04:00] VITALS: BP 104/61
[2017-11-02] MEDS: oxyCODONE 5mg IR tab ORAL PRN (04:53)
[2017-11-02] MEDS: Dronabinol 2.5mg Cap ORAL SCH ×3 (05:52→22:17)
[2017-11-02 08:00] VITALS: BP 108/63
[2017-11-02 12:00] VITALS: BP 114/64
[2017-11-02 16:00] VITALS: BP 118/70
[2017-11-02 20:00] VITALS: BP 109/62
--- NOTE | 2017-11-02 20:16 | Progress Note ---
DATE: 11/02/2017 ACUTE PAIN MANAGEMENT PHYSICIAN PROGRESS NOTE MEDICATIONS: Medication administration record reviewed. Medications include Phenergan, Chloraseptic, Protonix, Roxicodone, Dilaudid, Marinol, Benadryl, Soma, Mylanta, and Fioricet. LABORATORY STUDIES: No interval laboratory studies. OBJECTIVE: VITAL SIGNS: Pain level 5/10 on the visual analog pain scale, oxygen saturation 100% on room air, blood pressure 108/63, respirations 17, pulse 83, afebrile. I spent over 60 minutes in consultation today. I saw the patient at bedside with the nurse RN, Wayne. I discussed the case with the surgeon, Dr. Lackey and the physical therapist, Arturo. The patient is progressing very well clinically. She just started passing positive flatus. I have updated Dr. Lackey and he will advance her diet when he feels appropriate. The patient is ambulating very frequently. Earlier she was walking in the hallways greater than 150 feet with minimal assistance. There was question if he might need a front wheel walker when she is discharged from the hospital. This may or may not be necessary. The patient is progressing quite well and has a very good optimism. She has nearly stopped using the parenteral narcotics. She has been responding well to the oxycodone, which in combination with the scheduled Marinol and intermittent Soma, has been providing excellent analgesia and able to advance her ambulation. She has been compliant using her incentive spirometer. I did encourage deep breathing. We will continue to await further improvement in her bowel function and she will remain in the hospital on supportive care until she has a bowel movement after ALIF surgical procedure. The patient already has prescription for Soma and I will leave a prescription for Percocet for outpatient usage. The patient also will continue with marijuana at home for analgesia. Kurt Jones M.D. DR: Jennifer JOB#: [id number] CC:
[2017-11-03] VITALS (7 sets, daily range): BP systolic 102–134; BP diastolic 63–85
[2017-11-03] MEDS: oxyCODONE 5mg IR tab ORAL PRN ×2 (01:11→04:55)
[2017-11-03] MEDS: Dronabinol 2.5mg Cap ORAL SCH ×3 (06:03→20:52)
[2017-11-03] MEDS ORDERED: D5 1/2NS 1000ml IV ONE (11:13)
--- NOTE | 2017-11-03 18:45 | Progress Note ---
DATE: 11/03/2017 ACUTE PAIN MANAGEMENT PHYSICIAN PROGRESS NOTE MEDICATIONS: Medication administration record reviewed. Medications include Protonix and Marinol. P.r.n. medications include Narcan, Fioricet, Soma, Zofran, Mylanta, Benadryl, Phenergan, Chloraseptic spray, oxycodone, and Dilaudid. LABORATORY STUDIES: No interval laboratory studies. OBJECTIVE: VITAL SIGNS: Within normal limits. Pain level 6/10 on the visual analog pain scale. Afebrile, pulse 82, respirations 18, blood pressure 112/63, and oxygen saturation 99% on room air. I spent over 60 minutes in consultation today. I saw the patient at the bedside with the nurse RN Destin. The patient continues to ambulate frequently. I spoke with the surgeon, Dr. Lackey, regarding the patient's care. The patient still has tightness in her lumbar girdle area. This is consistent with postoperative surgical pain after her considerable lumbar spine fusion surgery. The patient continues to pass considerable flatus, and Dr. Lackey did advance the patient's diet. She tolerated clear liquid and full liquid diet. She will continue advancing her diet slowly. She has no nausea symptoms. The patient shows no signs of oversedation on the scheduled Marinol. In fact, she has been having some insomnia. I did encourage to continue using the p.r.n. doses of Soma and oxycodone for breakthrough pain and for insomnia symptoms. The patient has been very compliant using her incentive spirometer. Her good efforts have kept fevers away. The patient has been able to move in and out of bed independently, although with some difficulty due to surgery. She does not appear to be a fall risk. The patient is in good spirits. I left the prescription for Percocet for outpatient usage. We will continue to monitor the patient's gastrointestinal function after her ALIF surgery, as she needs to have a bowel movement prior to discharging from the hospital. We will continue to advance her diet and hold off on any scheduled laxatives until ordered by Dr. Lackey. Kurt Jones M.D. DR: Alireza JOB#: [id number] CC:
[2017-11-04] MEDS: Dronabinol 2.5mg Cap ORAL SCH (06:13)
[2017-11-04] MEDS ORDERED: PERCOCET 10-321 EACH ORAL (07:56)
--- NOTE | 2017-11-04 19:30 | Progress Note ---
ACUTE PAIN MANAGEMENT PHYSICIAN PROGRESS NOTE MEDICATIONS: Medication administration record reviewed. Medications include Protonix, oxycodone, Mylanta, Benadryl, and Zofran. LABORATORY STUDIES: No interval laboratory studies. Vital signs within normal limits. Afebrile. Pain level is 4/10 on the visual analog pain scale. I discussed the case with the charge nurse, RNTia and the orthopedic floor nurse. The patient did have a bowel movement, which showed nondenominational of gastrointestinal function after ALIF surgical procedure. She continues to ambulate very well. She denies any shortness of breath or chest pain. Her pain is being well managed off of parenteral narcotics, she has been using the scheduled Marinol along with p.r.n. Soma and oxycodone with good relief. I did leave a prescription for Percocet for outpatient usage. The patient will be staying at a friend's house that help her recuperate. I agree with Dr. Lackey for a discharge trial home today with followup in the surgical clinic in 1 to 2 weeks. I did remind the patient to take home the incentive spirometer and continued usage for good pulmonary toilet. Kurt Jones M.D. DR: BENJAMIN JOB#: [id number] CC:
--- NOTE | 2017-11-05 12:44 | Discharge Summary ---
Discharge Summary Hospital Course Date of Admission October 30, 2017 at 06:38 Date of Discharge Nov 04, 2017 at 10:15 Admitting Diagnosis Posttraumatic: L5-S1 Instability Herniated nucleus pulposa Radiculopathy progressive neurologic deficit - Reason for Hospitalization: elective surgery HPI Jennifer Burton is a 32 year old female who was admitted on October 30, 2017 at 06:38 for Lumbar Discogenic Pain due to Posttraumatic: L5-S1 Instability, Herniated nucleus pulposa, Radiculopathy and progressive neurologic deficit - Consultations dr Jones-pain specialist Procedures s/p 10/30/[address] Lackey and dr Chambers ( for vascular exposure) Anterior: L5-S1 diskectomy, correction deformity, insertion of biomechanical lordotic device, internal fixation placement, bone morphogenic protein for fusion. Closure local anesthetic applied by surgeon, high-powered magnification dissection. Please see separate report for exposure and closure, Dr. Chambers. Posterior: the patient's body habitus greater than 95th percentile for height. Hemilaminotomy left L5-S1 with nerve root decompression dorsal foraminotomy, pedicle screw instrumentation, bilateral L5, bilateral S1, local anesthetic applied by surgeon. Intraoperative x-rays interpreted anterior/posterior by surgeon. Hospital Course s/p surgery course of recovery uneventful frequent neurochecks, stable pain management, pain specialist followed dressing C/D/I initially with IVF until tolerated duet Chloraseptic spray prn liquid diet initially and advanced as tolerated, a/emetic prn IS at the bedside , encouraged to use while in the bed encourage ambulation after pain controlled worked with PT/OT therapists voided freely tolerated diet pain controlled s stable for dc home with outpatient fup with surgeon as advised dc instructions provided FINAL DIAGNOSES Posttraumatic: L5-S1 Instability Herniated nucleus pulposa Radiculopathy progressive neurologic deficit - s/p anterior and posterior lumbar interbody fusion Discharge Medications Continued Medications: Carisoprodol* (Soma*) 350 Mg Tablet 350 MG PO NEEDED, TAB (This prescription has been renewed) Oxycodone Hcl/Acetaminophen 10-325 Mg Tablet (Percocet 10-325 Mg Tablet*) 1 Each Tablet 0.5 TAB ORAL Q4H PRN for For Pain, TAB (This prescription has been renewed) Triamcinolone Acetonide (Triamcinolone Acetonide) 80 Gm Cream..g. 80 GM TP BID, GM (This prescription has been renewed) Discontinued Medications: Hydrocodone Bit/Acetaminophen 10-325* (Hydrocodon-Acetaminophn 10-325*) 1 Each Tablet 1 TAB ORAL Q8H, #30 TAB 0 Refills Discharge Condition Upon Discharge: stable Discharge Disposition Patient was discharged to Home (01) Discharge Instructions Discharge Instructions Special Instructions I have been assigned to complete a D/C Summary on this account. I was not involved in the patient management Mira Silva NP Nov 05, 2017 12:44
== END 2017-11-04 10:15 | disposition home or self-care (01) | DRG 455 ==
LOC: SDSOVERFLO 06:38 → 3E 14:34
PROC: 0SG30A0 Fusion of Lumbosacral Joint with Interbody Fusion Device, Anterior Approach, Anterior Column, Open Approach (ICD-10-PCS; principal; 2017-10-30 07:00)
PROC: 0SG30J1 Fusion of Lumbosacral Joint with Synthetic Substitute, Posterior Approach, Posterior Column, Open Approach (ICD-10-PCS; principal; 2017-10-30 07:00)
PROC: 3E0U0GB Introduction of Recombinant Bone Morphogenetic Protein into Joints, Open Approach (ICD-10-PCS; principal; 2017-10-30 07:00)
PROC: 0ST40ZZ Resection of Lumbosacral Disc, Open Approach (ICD-10-PCS; principal; 2017-10-30 07:00)
DX: M53.2X7 Spinal instabilities, lumbosacral region (principal); G47.00 Insomnia, unspecified; G89.18 Other acute postprocedural pain; M21.372 Foot drop, left foot; E66.9 Obesity, unspecified; Z68.31 Body mass index [BMI] 31.0-31.9, adult; M51.17 Intervertebral disc disorders with radiculopathy, lumbosacral region
CPT/HCPCS: 36415; 72020; 76001; 81025; 86850; 86870; 86900; 86901; 87081; 94003; 94150; J2250; J2405; J2710